=== PATIENT | female | born 1975 | race Caucasian/White ===

== ENCOUNTER → 2018-02-27 | Outpatient (CLI) | payer OTHER ==
[2018-02-27 11:19] LABS: BASOPHILS % (AUTO) 0.7 % (0.0-2.0); EOSINOPHILS % (AUTO) 2.6 % (1.0-6.0); HEMATOCRIT 35.3 % (36-46); LYMPHOCYTES # (AUTO) 1.7 K/uL (1.0-4.8); MEAN CORPUSCULAR HEMOGLOBIN 25.1 pg (26.0-34.0); MEAN CORPUSCULAR VOLUME 74 fL (80-100); MONOCYTES # (AUTO) 0.5 K/uL (0.1-1.0); MONOCYTES % (AUTO) 5.7 % (2.0-9.0); NEUTROPHILS # (AUTO) 6.9 K/uL (1.8-7.7); PLATELET COUNT (AUTO) 142 K/uL (150-450); RED BLOOD CELL COUNT(AUTO) 4.78 MIL/uL (4.00-5.20); RED CELL DISTRIBUTION WIDTH 15.5 % (11.5-14.5)
[2018-02-27 11:36] LABS: ALANINE AMINOTRANSFERASE 34 U/L (12-78); ALBUMIN 3.6 g/dL (3.4-5.0); ALKALINE PHOSPHATASE 64 U/L (46-116); ANION GAP 4 mmol/L (8-16); ASPARTATE AMINOTRANSFERASE 21 U/L (15-37); BILIRUBIN,TOTAL 0.3 mg/dL (0.1-1.0); CALCIUM, TOTAL 8.3 mg/dL (8.8-10.5); CARBON DIOXIDE 30 mmol/L (22-29); CHLORIDE 102 mmol/L (98-107); CHOL/HDL RATIO 4.5 (3.9-5.7); CHOLESTEROL 165 mg/dL (131-200); CREATININE 0.74 mg/dL (0.60-1.30); GLOMERULAR FILTR. RATE CALC > 60 mL/min (>60); GLUCOSE,RANDOM 103 mg/dL (70-110); HDL CHOLESTEROL 37 mg/dL (40-60); LDL CHOL (CALC.) 108 mg/dL (0-130); POTASSIUM 4.4 mmol/L (3.5-5.1); SODIUM SERUM 136 mmol/L (136-145); TOTAL PROTEIN, SERUM 7.2 g/dL (6.4-8.2); TRIGLYCERIDES 98 mg/dL (15-150); UREA NITROGEN, BLOOD 16 mg/dL (7-18)
== END | disposition home or self-care (01) ==
LOC: LABPV 09:25
PROVIDERS: ATTEND Family Medicine
DX: Z13.9 Encounter for screening, unspecified (principal)

== ENCOUNTER → 2019-11-26 | Outpatient (CLI) | payer OTHER ==
[2019-11-26 10:27] LABS: BASOPHILS % (AUTO) 0.4 % (0.0-2.0); EOSINOPHILS % (AUTO) 2.1 % (1.0-6.0); HEMATOCRIT 33.2 % (36-46); HEMOGLOBIN 10.6 g/dL (12.0-16.0); LYMPHOCYTES % (AUTO) 17.7 % (22.0-44.0); MEAN CORPUSCULAR HEMOGLOBIN 21.9 pg (26.0-34.0); MEAN CORPUSCULAR VOLUME 68 fL (80-100); MONOCYTES # (AUTO) 0.6 K/uL (0.1-1.0); MONOCYTES % (AUTO) 5.9 % (2.0-9.0); NEUTROPHILS # (AUTO) 8.1 K/uL (1.8-7.7); NEUTROPHILS % (AUTO) 73.9 % (40.0-70.0); PLATELET COUNT (AUTO) 247 K/uL (150-450); RED BLOOD CELL COUNT(AUTO) 4.86 MIL/uL (4.00-5.20); RED CELL DISTRIBUTION WIDTH 17.2 % (11.5-14.5)
[2019-11-26 10:50] LABS: ALANINE AMINOTRANSFERASE 27 U/L (12-78); ALBUMIN 3.8 g/dL (3.4-5.0); ALKALINE PHOSPHATASE 55 U/L (46-116); ANION GAP 6 mmol/L (8-16); ASPARTATE AMINOTRANSFERASE 14 U/L (15-37); BILIRUBIN,TOTAL 0.3 mg/dL (0.1-1.0); CALCIUM, TOTAL 8.8 mg/dL (8.8-10.5); CARBON DIOXIDE 31 mmol/L (22-29); CHLORIDE 102 mmol/L (98-107); CHOL/HDL RATIO 4.3 (3.9-5.7); CHOLESTEROL 176 mg/dL (131-200); CREATININE 0.81 mg/dL (0.60-1.30); GLOMERULAR FILTR. RATE CALC > 60 mL/min (>60); GLUCOSE,RANDOM 101 mg/dL (70-110); HDL CHOLESTEROL 41 mg/dL (40-60); LDL CHOL (CALC.) 112 mg/dL (0-130); POTASSIUM 3.8 mmol/L (3.5-5.1); SODIUM SERUM 139 mmol/L (136-145); TOTAL PROTEIN, SERUM 7.5 g/dL (6.4-8.2); TRIGLYCERIDES 117 mg/dL (15-150); UREA NITROGEN, BLOOD 13 mg/dL (7-18)
== END | disposition home or self-care (01) ==
LOC: LABPV 09:35
PROVIDERS: ATTEND Nurse Practitioner
DX: Z00.00 Encounter for general adult medical examination without abnormal findings (principal); Z13.9 Encounter for screening, unspecified

== ENCOUNTER → 2019-11-30 | Outpatient (CLI) | payer OTHER ==
[2019-11-30 13:29] LABS: FREE T4 (FREE THYROXINE) 1.21 ng/dL (0.76-1.46); THYROID STIMULATING HORMONE 1.37 uIU/mL (0.36-3.74)
== END | disposition home or self-care (01) ==
LOC: LABPV 11:22
PROVIDERS: ATTEND Nurse Practitioner
DX: E03.9 Hypothyroidism, unspecified (principal)
CPT/HCPCS: 84439; 84443; 84481

== ENCOUNTER → 2019-12-01 | Outpatient (CLI) | payer OTHER | END | disposition home or self-care (01) | LOC: RADPV 09:39 | PROVIDERS: ATTEND Nurse Practitioner | DX: N83.8 Other noninflammatory disorders of ovary, fallopian tube and broad ligament (principal); N92.0 Excessive and frequent menstruation with regular cycle; R51 Headache | CPT/HCPCS: 76830; 76856 ==

== ENCOUNTER → 2019-12-07 | Outpatient (CLI) | payer OTHER ==
[~2019-12-07] MED LIST: GADOBUTROL 1 MMOL/ML 10 ML VIAL IVP ONE
== END | disposition home or self-care (01) ==
LOC: RADMN 09:38
PROVIDERS: ATTEND Nurse Practitioner
DX: J32.9 Chronic sinusitis, unspecified (principal); N92.0 Excessive and frequent menstruation with regular cycle
CPT/HCPCS: 70553; A9585

== ENCOUNTER → 2020-02-16 | Outpatient (CLI) | payer OTHER | END | disposition home or self-care (01) | LOC: EMS 17:20 | DX: Z20.828 Contact with and (suspected) exposure to other viral communicable diseases (principal) | CPT/HCPCS: U0003 ==

== ENCOUNTER → 2020-03-22 | Outpatient (CLI) | payer OTHER ==
[2020-03-22 10:31] LABS: BASOPHILS % (AUTO) 0.6 % (0.0-2.0); EOSINOPHILS % (AUTO) 2.2 % (1.0-6.0); HEMATOCRIT 38.8 % (36-46); LYMPHOCYTES # (AUTO) 1.7 K/uL (1.0-4.8); LYMPHOCYTES % (AUTO) 19.1 % (22.0-44.0); MEAN CORPUSCULAR HEMOGLOBIN 25.7 pg (26.0-34.0); MEAN CORPUSCULAR HGB CONC 33.5 G/dL (31.0-37.0); MEAN CORPUSCULAR VOLUME 77 fL (80-100); MONOCYTES # (AUTO) 0.4 K/uL (0.1-1.0); MONOCYTES % (AUTO) 5.1 % (2.0-9.0); NEUTROPHILS # (AUTO) 6.3 K/uL (1.8-7.7); PLATELET COUNT (AUTO) 244 K/uL (150-450); RED BLOOD CELL COUNT(AUTO) 5.06 MIL/uL (4.00-5.20); RED CELL DISTRIBUTION WIDTH 15.1 % (11.5-14.5)
[2020-03-22 10:38] LABS: ALANINE AMINOTRANSFERASE 23 U/L (12-78); ALBUMIN 3.7 g/dL (3.4-5.0); ALKALINE PHOSPHATASE 53 U/L (46-116); ANION GAP 5 mmol/L (8-16); ASPARTATE AMINOTRANSFERASE 15 U/L (15-37); BILIRUBIN,TOTAL 0.5 mg/dL (0.1-1.0); CALCIUM, TOTAL 8.8 mg/dL (8.8-10.5); CARBON DIOXIDE 29 mmol/L (22-29); CHLORIDE 104 mmol/L (98-107); CHOL/HDL RATIO 3.9 (3.9-5.7); CHOLESTEROL 166 mg/dL (131-200); CREATININE 0.74 mg/dL (0.60-1.30); GLOMERULAR FILTR. RATE CALC > 60 mL/min (>60); GLUCOSE,RANDOM 109 mg/dL (70-110); HDL CHOLESTEROL 43 mg/dL (40-60); LDL CHOL (CALC.) 107 mg/dL (0-130); SODIUM SERUM 138 mmol/L (136-145); TOTAL PROTEIN, SERUM 6.9 g/dL (6.4-8.2); TRIGLYCERIDES 81 mg/dL (15-150); UREA NITROGEN, BLOOD 12 mg/dL (7-18)
== END | disposition home or self-care (01) ==
LOC: LABPV 09:05
PROVIDERS: ATTEND Nurse Practitioner
DX: E66.9 Obesity, unspecified (principal); Z13.9 Encounter for screening, unspecified

== ENCOUNTER → 2020-04-07 | Outpatient (CLI) | payer OTHER ==
[2020-04-07 12:54] LABS: FREE T4 (FREE THYROXINE) 1.11 ng/dL (0.76-1.46); THYROID STIMULATING HORMONE 1.11 uIU/mL (0.36-3.74)
== END | disposition home or self-care (01) ==
LOC: LABPV 10:11
PROVIDERS: ATTEND Nurse Practitioner
DX: Z20.828 Contact with and (suspected) exposure to other viral communicable diseases (principal); L65.9 Nonscarring hair loss, unspecified
CPT/HCPCS: 84439; 84443; 84481; 86376; 36415-L1; 36415-TC

== ENCOUNTER 2020-06-23 19:29 | Emergency (ER) | payer OTHER ==
[~2020-06-23] VITALS: Ht 160 cm; Wt 65.9 kg
[2020-06-23 20:09] VITALS: BP 129/79
[2020-06-23] MEDS ORDERED: ACETAMINOPHEN 325 MG TABLET PO ONE (20:30)
== END 2020-06-23 21:00 | disposition home or self-care (01) ==
LOC: EMS 19:29
DX: S83.91XA Sprain of unspecified site of right knee, initial encounter (principal); W10.8XXA Fall (on) (from) other stairs and steps, initial encounter; Y93.89 Activity, other specified; Y92.89 Other specified places as the place of occurrence of the external cause; Y99.0 Civilian activity done for income or pay
CPT/HCPCS: 99282; Z7502; Z7610

== ENCOUNTER → 2020-10-13 | Outpatient (CLI) | payer OTHER ==
[2020-10-13 12:17] LABS: BASOPHILS % (AUTO) 0.8 % (0.0-2.0); EOSINOPHILS % (AUTO) 2.6 % (1.0-6.0); HEMATOCRIT 39.5 % (36-46); HEMOGLOBIN 12.6 g/dL (12.0-16.0); LYMPHOCYTES # (AUTO) 1.9 K/uL (1.0-4.8); LYMPHOCYTES % (AUTO) 19.9 % (22.0-44.0); MEAN CORPUSCULAR HEMOGLOBIN 25.2 pg (26.0-34.0); MEAN CORPUSCULAR VOLUME 79 fL (80-100); MONOCYTES # (AUTO) 0.5 K/uL (0.1-1.0); MONOCYTES % (AUTO) 5.6 % (2.0-9.0); NEUTROPHILS # (AUTO) 6.6 K/uL (1.8-7.7); NEUTROPHILS % (AUTO) 71.1 % (40.0-70.0); PLATELET COUNT (AUTO) 287 K/uL (150-450); RED BLOOD CELL COUNT(AUTO) 5.02 MIL/uL (4.00-5.20); RED CELL DISTRIBUTION WIDTH 14.3 % (11.5-14.5)
[2020-10-13 12:37] LABS: ALANINE AMINOTRANSFERASE 23 U/L (12-78); ALKALINE PHOSPHATASE 61 U/L (46-116); ANION GAP 8 mmol/L (8-16); ASPARTATE AMINOTRANSFERASE 16 U/L (15-37); BILIRUBIN,TOTAL 0.2 mg/dL (0.1-1.0); CALCIUM, TOTAL 8.8 mg/dL (8.8-10.5); CARBON DIOXIDE 30 mmol/L (22-29); CHLORIDE 102 mmol/L (98-107); CHOL/HDL RATIO 5.1 (3.9-5.7); CHOLESTEROL 200 mg/dL (131-200); CREATININE 0.64 mg/dL (0.60-1.30); GLOMERULAR FILTR. RATE CALC > 60 mL/min (>60); GLUCOSE,RANDOM 99 mg/dL (70-110); HDL CHOLESTEROL 39 mg/dL (40-60); LDL CHOL (CALC.) 134 mg/dL (0-130); POTASSIUM 4.4 mmol/L (3.5-5.1); SODIUM SERUM 140 mmol/L (136-145); TOTAL PROTEIN, SERUM 7.1 g/dL (6.4-8.2); TRIGLYCERIDES 135 mg/dL (15-150); UREA NITROGEN, BLOOD 14 mg/dL (7-18)
== END | disposition home or self-care (01) ==
LOC: LABPV 09:27
PROVIDERS: ATTEND Nurse Practitioner
DX: B35.1 Tinea unguium (principal); Z79.82 Long term (current) use of aspirin
CPT/HCPCS: 80053; 80061; 85025

== ENCOUNTER → 2020-12-01 | Outpatient (CLI) | payer OTHER ==
[2020-12-01 12:41] LABS: ALBUMIN 3.6 g/dL (3.4-5.0); BILIRUBIN,DIRECT 0.1 mg/dL (0.00-0.20); BILIRUBIN,TOTAL 0.3 mg/dL (0.1-1.0)
== END | disposition home or self-care (01) ==
LOC: LABMN 10:43
PROVIDERS: ATTEND Nurse Practitioner
DX: B35.1 Tinea unguium (principal)
CPT/HCPCS: 80076

== ENCOUNTER → 2021-01-25 | Outpatient (CLI) | payer OTHER ==
[2021-01-25 12:20] LABS: BASOPHILS % (AUTO) 0.6 % (0.0-2.0); EOSINOPHILS % (AUTO) 1.1 % (1.0-6.0); HEMATOCRIT 39.3 % (36-46); HEMOGLOBIN 12.8 g/dL (12.0-16.0); LYMPHOCYTES # (AUTO) 1.3 K/uL (1.0-4.8); LYMPHOCYTES % (AUTO) 15.6 % (22.0-44.0); MEAN CORPUSCULAR HEMOGLOBIN 25.8 pg (26.0-34.0); MEAN CORPUSCULAR HGB CONC 32.5 G/dL (31.0-37.0); MEAN CORPUSCULAR VOLUME 79 fL (80-100); MONOCYTES # (AUTO) 0.4 K/uL (0.1-1.0); MONOCYTES % (AUTO) 4.6 % (2.0-9.0); NEUTROPHILS # (AUTO) 6.7 K/uL (1.8-7.7); NEUTROPHILS % (AUTO) 78.1 % (40.0-70.0); PLATELET COUNT (AUTO) 267 K/uL (150-450); RED BLOOD CELL COUNT(AUTO) 4.95 MIL/uL (4.00-5.20); RED CELL DISTRIBUTION WIDTH 15.3 % (11.5-14.5)
[2021-01-25 12:29] LABS: ALANINE AMINOTRANSFERASE 22 U/L (12-78); ALBUMIN 3.7 g/dL (3.4-5.0); ALKALINE PHOSPHATASE 54 U/L (46-116); ANION GAP 7 mmol/L (8-16); ASPARTATE AMINOTRANSFERASE 14 U/L (15-37); BILIRUBIN,TOTAL 0.5 mg/dL (0.1-1.0); CALCIUM, TOTAL 8.3 mg/dL (8.8-10.5); CARBON DIOXIDE 30 mmol/L (22-29); CHLORIDE 106 mmol/L (98-107); CHOL/HDL RATIO 3.3 (3.9-5.7); CHOLESTEROL 164 mg/dL (131-200); CREATININE 0.68 mg/dL (0.60-1.30); GLOMERULAR FILTR. RATE CALC > 60 mL/min (>60); GLUCOSE,RANDOM 105 mg/dL (70-110); HDL CHOLESTEROL 49 mg/dL (40-60); LDL CHOL (CALC.) 106 mg/dL (0-130); POTASSIUM 4.1 mmol/L (3.5-5.1); SODIUM SERUM 143 mmol/L (136-145); TRIGLYCERIDES 46 mg/dL (15-150); UREA NITROGEN, BLOOD 12 mg/dL (7-18)
== END | disposition home or self-care (01) ==
LOC: LABPV 09:32
PROVIDERS: ATTEND Nurse Practitioner
DX: B35.1 Tinea unguium (principal)
CPT/HCPCS: 80053; 80061; 82248; 85025

== ENCOUNTER → 2021-12-13 | Outpatient (CLI) | payer OTHER ==
[2021-12-13 11:11] LABS: EOSINOPHILS % (AUTO) 1.3 % (1.0-6.0); HEMATOCRIT 38.9 % (36-46); HEMOGLOBIN 12.9 g/dL (12.0-16.0); LYMPHOCYTES # (AUTO) 1.3 K/uL (1.0-4.8); LYMPHOCYTES % (AUTO) 19.9 % (22.0-44.0); MEAN CORPUSCULAR HEMOGLOBIN 25.8 pg (26.0-34.0); MEAN CORPUSCULAR HGB CONC 33.2 G/dL (31.0-37.0); MEAN CORPUSCULAR VOLUME 78 fL (80-100); MONOCYTES # (AUTO) 0.4 K/uL (0.1-1.0); MONOCYTES % (AUTO) 6.1 % (2.0-9.0); NEUTROPHILS # (AUTO) 4.7 K/uL (1.8-7.7); NEUTROPHILS % (AUTO) 71.7 % (40.0-70.0); PLATELET COUNT (AUTO) 252 K/uL (150-450); RED CELL DISTRIBUTION WIDTH 15.2 % (11.5-14.5)
[2021-12-13 11:44] LABS: VITAMIN B12 LEVEL 484 pg/mL (211-911); VITAMIN D,TOTAL (25-0H) 39 ng/mL (30-100)
[2021-12-13 11:56] LABS: % IRON SATURATION 26.6 % (22-44)
[2021-12-13 12:13] LABS: C-REACTIVE PROTEIN QUANT 0.12 mg/dL (0.00-0.30); FREE T4 (FREE THYROXINE) 1.12 ng/dL (0.76-1.46); THYROID STIMULATING HORMONE 0.98 uIU/mL (0.36-3.74)
[2021-12-14 06:07] LABS: TESTOSTERONE TOTAL 5 ng/dL (4-50)
[2021-12-14 07:06] LABS: RHEUMATOID FACTOR, REF LAB <10.0 IU/mL (<14.0)
== END | disposition home or self-care (01) ==
LOC: LABMN 10:22
PROVIDERS: ATTEND Nurse Practitioner
DX: L65.9 Nonscarring hair loss, unspecified (principal)
CPT/HCPCS: 82306; 82607; 82728; 83001; 83002; 83540; 83550; 84146; 84403; 84439; 84443; 84481; 85025; 86038; 86140; 86376; 86431; 36415-L1; 36415-TC